=== PATIENT | male | born 1955 | race Caucasian/White ===

== ENCOUNTER → 2019-03-03 | Outpatient (CLI) | payer MEDICARE ==
[~2019-03-03] MED LIST: ATENOLOL25 MG PO; CENTRUM SILVER1 EAC1 PO; LEVOCETIRIZINE D5 MG PO; NEXIUM40 MG PO; PYRIDOSTIGMINE60 MG PO; REGADENOSON 0.4 MG/5 ML SYR IV ONE; atenolol PO
== END ==
LOC: NM 02-18 09:10
PROVIDERS: ATTEND Internal Medicine
DX: R07.9 Chest pain, unspecified (principal)
CPT/HCPCS: 78452; 93017; A9502; J2785

== ENCOUNTER → 2019-03-30 | Day surgery (SDC) | payer MEDICARE ==
[2019-03-28 14:29] LABS: BASOPHILS % 0.6 % (0.0-1.0); EOSINOPHILS # (AUTO) 0.1 (0.0-0.4); EOSINOPHILS % 2.1 % (0.0-6.0); HEMATOCRIT 43.2 % (38.2-49.6); HEMOGLOBIN 13.7 g/dL (14.0-18.0); LYMPHOCYTES # (AUTO) 1.6 (1.0-3.2); LYMPHOCYTES % 23.2 % (18.0-39.1); MEAN CORPUSCULAR HEMOGLOBIN 26.4 pg (28-32); MEAN CORPUSCULAR HGB CONC 31.7 g/dL (31-35); MEAN CORPUSCULAR VOLUME 83.2 fL (81-99); MONOCYTES # (AUTO) 0.6 (0.2-0.8); MONOCYTES % 9.3 % (4.4-11.3); NEUTROPHILS # (AUTO) 4.4 (2.1-6.9); NEUTROPHILS % 64.5 % (38.7-80.0); PLATELET COUNT 137 x10e3/uL (140-360); RED BLOOD COUNT 5.19 x10e6/uL (4.3-5.7); RED CELL DISTRIBUTION WIDTH 15.9 % (11.7-14.4)
[2019-03-28 14:42] LABS: INR 0.87; PROTHROMBIN TIME 12.3 seconds (11.9-14.5)
[2019-03-28 14:49] LABS: ALANINE AMINOTRANSFERASE 40 IU/L (0-55); ALBUMIN/GLOBULIN RATIO 1.2 (0.8-2.0); ALKALINE PHOSPHATASE 72 IU/L (40-150); ANION GAP 14.3 mmol/L (8-16); BLOOD UREA NITROGEN 15 mg/dL (7-26); BUN/CREATININE RATIO 16 (6-25); CALCIUM 9.6 mg/dL (8.4-10.2); CARBON DIOXIDE 28 mmol/L (22-29); CHLORIDE 104 mmol/L (98-107); CREATININE, SERUM 0.96 mg/dL (0.72-1.25); EST GLOMERULAR FILTRATION RATE > 60 ML/MIN (60-); GLUCOSE 130 mg/dL (74-118); POTASSIUM 4.3 mmol/L (3.5-5.1); SODIUM 142 mmol/L (136-145)
[2019-03-30] VITALS (7 sets, daily range): BP systolic 98–117; BP diastolic 60–75
[~2019-03-30] VITALS: Ht 190.5 cm; Wt 163.3 kg
[~2019-03-30] MED LIST changes: +ASPIR 8181 MG PO; +ATORVASTATIN CA20 MG PO; +CELLCEPT200 MG/1 M PO; +CITALOPRAM HBR20 MG PO; +FENTANYL CITRATE/PF 100MCG/2 ML INJ ONE; +FERROUS SULFAT325 MG PO; +GLUCERNA237 ML PO; +HEPARIN SOD/SOD CHLORIDE 2,000 ML ONE; +IOPAMIDOL 370 MG/ML 200 ML INFUS..BTL INJ ONE; +LIDOCAINE HCL 2% LOCAL 20 ML VIAL ONE; +METFORMIN HCL500 MG PO; +MIDAZOLAM HCL 2 MG/2 ML VIAL ONE; -REGADENOSON 0.4 MG/5 ML SYR IV ONE; +SODIUM CHLORIDE 0.9% 1000ML 1,000 ML ONE; +VERAPAMIL HCL 2.5 MG/ML 2 ML VIAL ONE
--- OUTSIDE RECORDS SUMMARY | 2019-03-30 10:37 | XMS REPORT | Summary of Care ---
Author Author [facility] [place] Organization [facility] [place] Address Unknown Phone Unavailable Encounter HQ Encntr_alias(FIN) [id number] Date(s): 06/03/16 - 06/03/16 [facility] [place] [address] [place] [phone] Discharge Disposition: Home or Self Care Attending Physician: Von Moore MD Vital Signs No data available for this section Problem List No data available for this section Allergies, Adverse Reactions, Alerts No data available for this section Medications No data available for this section Results No data available for this section Immunizations No data available for this section Procedures No data available for this section Social History No data available for this section Assessment and Plan No data available for this section
--- OUTSIDE RECORDS SUMMARY | 2019-03-30 10:37 | XMS REPORT | Continuity of Care Document ---
Author Author [employer] Address Unknown Phone Unavailable Care Team Providers Care User Interface Artist Name Role Phone [employer] Unavailable Unavailable Problems No Data Provided for This Section Medications No Data Provided for This Section Allergies, Adverse Reactions, Alerts No Known Medication Allergies Immunizations No Data Provided for This Section Results No Data Provided for This Section Pathology Reports No Data Provided for This Section Diagnostic Reports Report Value Date Source Ankle 3 views DX EXAMINATION: 1. Left ankle 3 views 2. Left foot 3 views HISTORY: Left ankle and foot pain; left foot foreign body; left heel spur FINDINGS: 3 view nonweightbearing examination of the left ankle and 3 view nonweightbearing examination of the left foot is performed without comparison. There are no acute fractures or dislocations. Note is made of a small ossific density distal to the medial malleolus which may represent an old nonunited medial malleolus avulsion fracture or heterotopic ossification as sequela of prior medial ankle ligamentous injury. There is an os trigonum versus prominent Stieda process along the posterior aspect of the talus. There is an os peroneum. The ankle mortise is symmetric. There is no widening of the distal tibiofibular syndesmosis. 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 The remaining joint spaces are normal. There is a 6 mm linear radiopaque foreign body along the plantar soft tissues of the 1st webspace. There is no ankle effusion. There is a plantar calcaneal spur. There is heterotopic ossification at the Achilles insertion. Arterial atherosclerotic calcifications are noted. IMPRESSION: 1. No acute fracture or dislocation of the left ankle or foot. 2. Linear radiopaque foreign body measuring 6 mm in length along the plantar soft tissues of the 1st webspace. 3. Note is made of a small ossific density distal to the medial malleolus which may represent an old nonunited medial malleolus avulsion fracture or heterotopic ossification as sequela of prior medial ankle ligamentous injury. 4. Left plantar calcaneal spur. 06/03/2016 [facility] Foot series DX EXAMINATION: 1. Left ankle 3 views 2. Left foot 3 views HISTORY: Left ankle and foot pain; left foot foreign body; left heel spur FINDINGS: 3 view nonweightbearing examination of the left ankle and 3 view nonweightbearing examination of the left foot is performed without comparison. There are no acute fractures or dislocations. Note is made of a small ossific density distal to the medial malleolus which may represent an old nonunited medial malleolus avulsion fracture or heterotopic ossification as sequela of prior medial ankle ligamentous injury. There is an os trigonum versus prominent Stieda process along the posterior aspect of the talus. There is an os peroneum. The ankle mortise is symmetric. There is no widening of the distal tibiofibular syndesmosis. 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 The remaining joint spaces are normal. There is a 6 mm linear radiopaque foreign body along the plantar soft tissues of the 1st webspace. There is no ankle effusion. There is a plantar calcaneal spur. There is heterotopic ossification at the Achilles insertion. Arterial atherosclerotic calcifications are noted. IMPRESSION: 1. No acute fracture or dislocation of the left ankle or foot. 2. Linear radiopaque foreign body measuring 6 mm in length along the plantar soft tissues of the 1st webspace. 3. Note is made of a small ossific density distal to the medial malleolus which may represent an old nonunited medial malleolus avulsion fracture or heterotopic ossification as sequela of prior medial ankle ligamentous injury. 4. Left plantar calcaneal spur. 06/03/2016 [facility] Consultation Notes No Data Provided for This Section Discharge Summaries No Data Provided for This Section History and Physicals No Data Provided for This Section Vital Signs No Data Provided for This Section Encounters Location Location Details Encounter Type Encounter Number Reason For Visit Attending Provider ADM Date DC Date Status Source [facility] [place] [facility] [id number] Von Moore 06/03/2016 06/04/2016 [facility] Procedures No Data Provided for This Section Assessment and Plan No Data Provided for This Section Plan of Care No Data Provided for This Section Social History Social History Date Source No data available for this section 06/04/2016 [facility] Family History No Data Provided for This Section Advance Directives No Data Provided for This Section Functional Status No Data Provided for This Section
--- NOTE | 2019-03-30 11:00 | NUR ---
pt received in ACU 8, prepped for procedure. Alert oriented and appropriate, PERRLA, respirations even and unlabored to room air. Pulses x4 extremities equal and palpable . Cap fill brisk < 3 sec. Pre-Procedure assessment performed. Skin warm and dry integrity appears intact in general. IV X20g x4 attempt started and presents healthy w/o s/s of infiltration or complaint. Abdomen soft and supple. pt offered toileting, denies need to urinate or defecate. Personal affects with patient. Family at bedside. Pt and family verbalizes understanding of POC. Pre-Op None. bed low and locked, side rails up x2 and call light at side. -cgf
--- NOTE | 2019-03-30 15:42 | NUR ---
1542pm Bedside report received from ES Esposito.Identiferx2. Complicated [facility], Dr Burt multiple access sites. Rt Angio seal and rt TR band Gross issues pain pallor pressure or dysrhythmia. No hematoma or oozing Tr band site.Alert oriented and appropriate, PERRLA, respirations even and unlabored to room air. Pulses x4 extremities equal and strong. Pedal pulses PT/DP x4 Doppler Cap fill brisk < 3 sec. Skin warm and dry integrity appears D/I. IV 20g to rt arm and left arm.Presents healthy w/o s/s of infiltration or complaint. Abdomen soft and supple. pt offered toileting, denies need to urinate or defecate. No personal affects with patient. Family Pt and family verbalize understanding of planning of care. Currently w/o complaint of pain or need. Tr band air down at 1630 No oozing or hematoma. ds/es
--- NOTE | 2019-03-30 16:30 | NUR ---
1630DIAL Compression removal: Initial Cuff volume 14 cc at 1530 1630 -2 cc Removed No hematoma/bleeding noted with normal neurovascular function. 1645 -2cc Removed No hematoma/ bleeding noted with normal neurovascular function. 1700 -2cc Removed No hematoma/bleeding noted with normal neurovascular function. 1715 -2cc Removed No hematoma/ bleeding noted with normal neurovascular function. Air removal completed. Stasis achieved sterile 2x2,Tegaderm, Coban dressing No hematoma, bleeding noted with normal neurovascular function. Wrist splint in place. Pt instructed on POC. Ds/Rn
--- NOTE | 2019-03-30 17:15 | NUR ---
1715pm Pt meets DC criteria.Rt radial assessed for s/s of complication and presence of hematoma. warm, dry, no discolor, and pulses present. IV removed from left non functionale iv and rt hand iv Distal tip appears intact. VS WNL. Pt denies pain, sob, or need at this time. Family Vanesa at bedside . Review of discharge paperwork and follow up instructions. verbalized understanding. Pt to wheelchair and transported to front of hospital. Transferred to private vehicle under own strength w/o incident.arm splint in place and rt angioseal dressing, intact NO signs hematoma or oozing.ppx4 present aware of f/o care.ds/rn
--- NOTE | 2019-04-25 19:44 | Operative Report ---
DATE OF PROCEDURE: 03/30/2019 SURGEON: Pradip Burt MD INDICATIONS FOR PROCEDURE: Chest pain. Positive stress test. PREPROCEDURE ASSESSMENT: The risks, benefits, and alternatives of treatment were explained to the patient prior to the procedure. The patient was deemed to be an appropriate candidate for moderate sedation. PROCEDURES PERFORMED: 1. Coronary angiography. 2. Bypass graft angiography. 3. Left heart catheterization. PROCEDURE IN DETAIL: The patient was brought to the cardiac catheterization laboratory in a fasting state. Right wrist was prepped and draped in a sterile fashion. Coronary angiography was performed using Nenita radial catheter through a 6-Occitan Slender sheath. We were able to cannulate the wainwright coronary artery as well as SVG to diagonal to the right radial artery. However, due to tortuosity, we were not easily able to engage the left internal mammary artery to the right radial approach, was switched to the right femoral approach at this point and we were able to complete angiography using 5-Occitan MARISSA catheter through a 5-Occitan sheath into the right common femoral artery. All catheters were removed over a wire. Access site was closed using a Mynx and ND band respectively over the right femoral and right radial artery. There were no immediate complications. SIGNIFICANT FINDING: Left main coronary artery, large caliber, no significant disease. LAD, large caliber, 99% calcified stenosis in the proximal LAD. This LAD fills via SOLIS to the LAD. Diagonal one is large vessel, fills via SVG to diagonal one, which is also widely patent. Left circumflex, large caliber, nondominant, one significant OM. RCA, large caliber, dominant RCA, large RPDA and RPL system. No significant disease. SVG to diagonal one, widely patent. SOLIS to LAD, widely patent. ESTIMATED BLOOD LOSS: 20 mL. GRAFTS AND IMPLANTS: None. SPECIMEN REMOVED: None. COMPLICATIONS: None. FINAL RECOMMENDATIONS: Continue optimal medical therapy and risk factor control. Follow up in clinic 2 weeks post procedure. Pradip Burt MD KVP/MODL /[id number]
== END | disposition home or self-care (01) ==
LOC: CATH LAB 10:20
PROVIDERS: ATTEND Internal Medicine
DX: I25.811 Atherosclerosis of native coronary artery of transplanted heart without angina pectoris (principal); R94.39 Abnormal result of other cardiovascular function study; I25.2 Old myocardial infarction; E13.8 Other specified diabetes mellitus with unspecified complications; Z88.0 Allergy status to penicillin; Z01.812 Encounter for preprocedural laboratory examination; Z79.82 Long term (current) use of aspirin; Z79.84 Long term (current) use of oral hypoglycemic drugs; Z68.43 Body mass index [BMI] 50.0-59.9, adult
CPT/HCPCS: 36415; 80053; 85025; 85610; 93459; C1766; C1769; C1887 ×2; J2001; J2250; J3010; J7030; Q9967; C1760

== ENCOUNTER → 2019-10-18 | Outpatient (CLI) | payer MEDICARE ==
[~2019-10-18] MED LIST changes: -FENTANYL CITRATE/PF 100MCG/2 ML INJ ONE; -HEPARIN SOD/SOD CHLORIDE 2,000 ML ONE; -IOPAMIDOL 370 MG/ML 200 ML INFUS..BTL INJ ONE; -LIDOCAINE HCL 2% LOCAL 20 ML VIAL ONE; -MIDAZOLAM HCL 2 MG/2 ML VIAL ONE; -SODIUM CHLORIDE 0.9% 1000ML 1,000 ML ONE; -VERAPAMIL HCL 2.5 MG/ML 2 ML VIAL ONE
--- NOTE | 2019-10-18 12:57 | Diagnostic Imaging Report ---
History:Dizziness, unsteady gait Comparison studies:CT head 08/01/2009 Technique: Axial images were obtained from the skull base to the vertex. Coronal and sagittal images reconstructed from the axial data. Intravenous contrast: None Dose modulation, iterative reconstruction, and/or weight based adjustment of the mA/kV was utilized to reduce the radiation dose to as low as reasonably achievable. Findings: Scalp/skull: No abnormalities. Extra-axial spaces: No masses. No fluid collections. Brain sulci: Mildly prominent. Ventricles: Age-appropriate. No hydrocephalus. Parenchyma: No abnormal densities. No masses, hemorrhage, acute or chronic cortical vascular insults. Sellar/suprasellar region: No abnormalities. Craniocervical junction: Patent foramen magnum. No Chiari one malformation. Incidental findings: None. Impression: No acute abnormalities. Mild age-related volume loss. Signed by: DR Jairo Westbrook M.D. on 10/18/2019 12:55 PM
== END ==
LOC: CT 11:51
PROVIDERS: ATTEND Family Medicine
DX: R42 Dizziness and giddiness (principal)
CPT/HCPCS: 70450

== ENCOUNTER → 2019-10-27 | Outpatient (CLI) | payer MEDICARE | LOC: RAD 07:51 | PROVIDERS: ATTEND Family Medicine | DX: R42 Dizziness and giddiness (principal) | CPT/HCPCS: 93306; 93880 ==